=== PATIENT | female | born 1975 | race Hispanic/Latino ===

== ENCOUNTER 2021-03-31 06:41 | Day surgery (SDC) | payer OTHER ==
[2021-03-24 15:48] LABS: Absolute Lymphocytes (CBC) 2.1 K/uL (0.7-4.9); Basophils % 0.9 % (0-1.3); Hematocrit 39.2 % (36.0-45.0); MPV 8.8 fL (7.6-11.3); RBC Red Blood Cell Count 4.32 M/uL (3.86-4.86)
[2021-03-24 15:59] LABS: BUN Blood Urea Nitrogen 8 mg/dL (7-18); Bicarbonate 29 mmol/L (21-32); Glucose Level 94 mg/dL (74-106); Potassium 3.8 mmol/L (3.5-5.1); Sodium Level 140 mmol/L (136-145)
[2021-03-24 16:00] LABS: Protime INR 0.99
[2021-03-24 17:12] LABS: Urine Appearance CLEAR (Clear); Urine Bilirubin NEGATIVE (Negative); Urine Blood NEGATIVE (Negative); Urine Color YELLOW (Yellow); Urine Glucose NEGATIVE (Negative); Urine Protein NEGATIVE (Negative); Urine Urobilinogen 0.2 mg/dL (0.2-1.0); Urine pH 5.5 (5.0-7.0)
[2021-03-24 17:13] LABS: Urine Bacteria 20-50 /HPF (<20); Urine Microscopic Reflex ORDER UMIC; Urine RBC <5 /HPF (NONE SEEN)
[2021-03-31] MEDS ORDERED: NA CHLORIDE 0.9% 1,000 ML ONE ×2 (06:46→07:38)
[2021-03-31] MEDS ORDERED: MIDAZOLAM HCL 2 MG/2 ML INJ ONE (06:58)
[2021-03-31] MEDS ORDERED: LIDOCAINE 2% MPF 5 ML VIAL ONE (06:58)
[2021-03-31] MEDS ORDERED: FENTANYL CITR 250 MCG/5 ML ONE (06:58)
[2021-03-31] MEDS ORDERED: ONDANSETRON 4 MG/2 ML VIAL ONE (06:58)
[2021-03-31] MEDS ORDERED: propofoL 200 MG/20 ML VIAL IV ONE (06:58)
[2021-03-31] MEDS ORDERED: ROCURONIUM 50 MG/5 ML VIAL IV ONE ×2 (06:58→09:30)
[2021-03-31] MEDS ORDERED: dexAMETHasone 10 MG/ML VIAL ONE (06:58)
[2021-03-31 06:59] LABS: Specific Gravity 1.025 (1.005-1.030)
[2021-03-31] MEDS ORDERED: SCOPOLAMINE HYDROBROMIDE PATCH TD ONE (07:01)
[2021-03-31] MEDS ORDERED: Ringers Lactate 1,000 ML IV ONE (07:02)
[2021-03-31] MEDS: BUPIVACAINE 0.25% PF 30 ML VIAL ONE ×2 (07:51→08:25)
[2021-03-31] MEDS: Ringers Lactate 1,000 ML IV ONE ×3 (09:38→10:00)
[2021-03-31] MEDS ORDERED: KETOROLAC 30 MG/ML INJ ONE (09:39)
[2021-03-31] MEDS ORDERED: GLYCOPYRROLATE 0.2 MG/ML SYR ONE (09:47)
[2021-03-31] MEDS ORDERED: NEOSTIGMINE 1 MG/ML -5 ML ONE (09:53)
[2021-03-31] MEDS ORDERED: PROMETHAZINE INJ 25 MG/ML AMP IV PRN (10:22)
[2021-03-31] MEDS ORDERED: HYDROCODONE/APAP 5/325 MG TAB PO PRN (10:22)
[2021-03-31] MEDS ORDERED: IBUPROFEN 200 MG TAB PO PRN (10:22)
[2021-03-31] MEDS ORDERED: MEPERIDINE HCL 25 MG/ML SYR IM PRN (10:22)
--- NOTE | 2021-03-31 10:30 | P.BOP ---
Preoperative diagnosis: pelvic pain, Left ovarian cyst, menorrhagia Postoperative diagnosis: pelvic pain,endometriosis,b/l hydrosalpinges,paratubal cysts,AUB-O Primary procedure: hystsc d/c,lapsc endo rx, BS,MAT sigmoid adhesions Manager Telemarketing: SOPHIE DEGROOT Estimated blood loss: min Specimen: endometriosis left ant lig, left lat and right lat wall,b/l tubes,EMC Findings: endo left ant broad lig prox to ant round lig, R/L lat wall, torsion rt ov/ Anesthesia: General Transferred to: Recovery Room Condition: Good
[2021-03-31 11:13] VITALS: TEMP 97.1; O2SAT 98
[2021-03-31] MEDS ORDERED: HYDROCODONE/APAP 5/325 MG TAB ONE (11:23)
[2021-03-31] MEDS ORDERED: PROMETHAZINE INJ 25 MG/ML AMP ONE (11:41)
[2021-03-31 13:05] VITALS: BP 102/52
--- NOTE | 2021-04-02 14:39 | OP ---
Date of Procedure: 03/31/2021 Surgeon: Yanet Benitez MD Home Health Scheduler: Priscilla Mejia. Preoperative Diagnoses: Pelvic pain, left ovarian cyst, and menorrhagia. Postoperative Diagnoses: Pelvic pain, endometriosis, bilateral hydrosalpinges, and bilateral paratubal cysts with right tubo-ovarian torsion, and menorrhagia. Procedures Performed: 1. Hysteroscopy, D and C. 2. Laparoscopy, extensive endometriosis excision, bilateral salpingectomy, and lysis of sigmoid adhesions. Estimated Blood Loss: Minimal. Specimens: Endometriosis of the left anterior broad ligament close to the proximal to the round ligament laterally and right lateral wall in the periureteric region and lateral to the uterosacral ligament and broad ligament coming over to the posterior broad ligament, then on the left lateral wall posterior broad ligament and lateral wall all the way down to the peritoneum above the ureter. Then, the peritoneum below the ureter between the ureter and sigmoid colon had endometriosis as well and this was removed. All these were excised. Endometriosis of the left anterior broad ligament, left lateral wall, right lateral wall, bilateral tubes, endometrial curettings. Anesthesia: General endotracheal. Home Health Scheduler: Jackie Findings: Endometriosis of the left anterior broad ligament proximal to the anterior round ligament, right lateral wall, left lateral wall going on the broad ligament, then the torsion of the right ovary and tube were seen, which had to be untwisted and then the tubal cyst on the distal tube. It was the reason why there was a torsion, so this was untorsed. The cyst as well as the tube were completely removed on the left side. There was significant hydrosalpinx with fibrosis, so the entire tube was removed. The ovaries were both normal, so they were both preserved. There was very minimal endometriosis to posterior cul-de-sac, which were extremely atypical, so unsure if this is endo, so this was left alone but suspected endometriosis was completely excised on both sides. Indications: The patient is a 46-year-old female with all those complaints, evaluated by ultrasound and found to have a left adnexal mass. Discussed about the possibility of pain due to the possibility of endometriosis and possibility of hydrosalpinges. She had an endometrial evaluation and D and C, so hysteroscopy and D and C were consented and for removal of tubes. The left ovarian cyst was noted to be complex. Pelvic washings, left ovarian cystectomy or left oophorectomy was discussed with the patient as well in case this was a tumor like lesion. Procedure In Detail: After informed consent was verified, she was taken back to OR and placed in supine fashion on the operating table. General anesthesia was given. She was placed in dorsal lithotomy position using Melo stirrups. Arms were tucked by the side. Positioning checked. SCDs started. Time-out was done. Abdomen, vulva, vagina, and perineum were prepped and draped in a sterile fashion. Speculum placed to expose the cervix. Anterior lip grasped with 2 Allis clamps and diagnostic hysteroscopy was performed. A SlimLine hysteroscope, 30-degree lens and no endometrial pathology was noted. Cavity was undistorted. Scope was removed. Curettings were performed and handed off for permanent pathology and uterine manipulator fixed in place and Haley was placed to drain the bladder and attached to a drainage bag and this area was draped. A 1 cm infraumbilical incision made with a scalpel using the open laparoscopy technique. Fascia was incised, tagged with 0 Vicryl sutures. Peritoneum entered sharply and Agllito introduced. After adequate insufflation, site of entry was checked and was unremarkable. Liver and gallbladder and upper peritoneal surfaces including the area of were all unremarkable. The patient was placed in Trendelenburg and the appendix unremarkable. Torsion of the right ovary and tube were seen due to the distal cystic paratubal lesion. There were cystic lesions included in the mesosalpinx on the left side and paratubal cyst as well. These were probably the reason why the left adnexal mass was noted to be complex, but these were definitely not any tumor like tissue. The left ovary was completely unremarkable as well as the right ovary. The uterus appeared to be mostly unremarkable. There was an endometriotic lesion cephalad to the insertion of the uterosacral ligament. This was cauterized. Then, left lateral wall above and lateral and below and medial to the ureteric course. There were multiple endometriotic implants and fibrosis. Distal uterosacral ligament also had some, similar scar tissue on the right side much more dense. The tubal torsion was untwisted after placing a 5 suprapubic in the left lower quadrant ports under direct vision. Once the untwisting was done, the endometriosis was well noted. The ureter was traced and plan was to remove the endo next to the round ligament and went onto the abdominal wall with extension of the mesosalpinx. This was present. Other than this, no endo was seen. The lateral peritoneum was incised with the help of scissors and opened up and scar tissue was dissected excised and this implant was handed off for permanent pathology. Then, the sigmoid adhesions were taken down sharply as well as with bipolar and once this was opened up, the entire left pelvic brim was well visualized. Then, the tube and mesosalpingeal masses were all excised using LigaSure and bipolar. Once all the specimen was retrieved, then attention directed to the opposite side. The ovary was untwisted from its torsion and ovary appeared to be unremarkable. The broad ligament was opened up. The distal tube was taken down with the help of LigaSure all the way and the proximal tube was taken down with the help of LigaSure then the specimen placed in the anterior cul-de-sac. Immediately to the medial to the ovary and onto the right lateral wall, then closing onto the posterior broad ligament were multiple endometriotic implants with scar tissue. The ureter was well visualized. The peritoneum was opened between the ureter and at the lesion just inferior to the pelvic brim and pelvic dissection was performed along the ureter taking the ureter down and it from the underlying endometriosis. Endometrial implants were all and circumscribed with monopolar needle and then removed with bipolar. The ureter and the uterine vessels were all preserved and the entire peritoneum stripped off with the implants. On the left side, similar dissection was performed opening up the lateral wall immediately caudad to the ovary. Then opening the peritoneum off the anteriorly, dissection was carried all the way to the level of the uterine vessels was then taken down along the posterior wall of lateral superior to the ureter. After identifying the internal iliac branches as well as the ureter, dissection was performed to clean this off from the side. Then was left overlying the ureter. Then peritoneum was entered sharply inferior to it because there were several implants between the ureter and the sigmoid colon. These were excised with the help of LigaSure after the ureter and there were other tissues to be damaged. This strip of peritoneum was excised and handed out and was labeled as left lateral . After all the peritoneal implants were removed, thorough irrigation and suction were performed. Tubes were all detached by now was placed and the tubes were placed retrieved. The distal right paratubal cyst was decompressed for the fluid and then all the specimens were pulled out in a specimen bag through the umbilical port. Thorough irrigation and suction were performed. EBL was minimal. All the ports were pulled under direct vision. Instrument, needle, and sponge counts were correct at the end of the case . The fascia of the umbilicus was closed with the help of tagged 0 Vicryl sutures, tied to each other and all skin incisions with 3-0 Vicryl interrupted sutures. Haley was removed. was removed as dictated before. The patient was recovered from anesthesia and taken to the PACU in stable condition. EBL was minimal. She has a 1-week follow up with me. PHYLICIA/RADHA Voice ID: [id number] Report ID: [id number] TOO
== END 2021-03-31 12:55 | disposition home or self-care (01) ==
LOC: OR 06:41
PROVIDERS: ATTEND Obstetrics & Gynecology
PROC: 0UJD8ZZ Inspection of Uterus and Cervix, Via Natural or Artificial Opening Endoscopic (ICD-10-PCS; 2021-03-31)
PROC: 0UT74ZZ Resection of Bilateral Fallopian Tubes, Percutaneous Endoscopic Approach (ICD-10-PCS; 2021-03-31)
PROC: 0UB44ZZ Excision of Uterine Supporting Structure, Percutaneous Endoscopic Approach (ICD-10-PCS; 2021-03-31)
PROC: 0DBW4ZZ Excision of Peritoneum, Percutaneous Endoscopic Approach (ICD-10-PCS; 2021-03-31)
PROC: 0UDB7ZX Extraction of Endometrium, Via Natural or Artificial Opening, Diagnostic (ICD-10-PCS; principal; 2021-03-31 07:30)
DX: R10.2 Pelvic and perineal pain (principal); N92.0 Excessive and frequent menstruation with regular cycle; R19.09 Other intra-abdominal and pelvic swelling, mass and lump; N39.3 Stress incontinence (female) (male); R39.14 Feeling of incomplete bladder emptying; N39.0 Urinary tract infection, site not specified; Z20.822 Contact with and (suspected) exposure to COVID-19
CPT/HCPCS: 85025; 80048; 36415; 86900; 86850; 81025; 85610; 86901; 88302; 88305; 85730; 58558; 58661; 58662; U0003; J2704; J2550; J2250; J3010; J1100; J2710; J7120 ×2; J7030 ×2; J2405; 81003; 81015

== ENCOUNTER 2024-08-01 07:30 | Day surgery (SDC) | payer OTHER ==
[2024-07-30 09:52] LABS: Absolute Eosinophils 0.1 K/uL (0-0.5); Absolute Lymphocytes (CBC) 2.3 K/uL (0.7-4.9); Absolute Monocytes 0.4 K/uL (0.1-1.3); Absolute Neutrophil 2.6 K/uL (1.8-8.0); Basophils % 0.8 % (0-1.3); Eosinophils % 1.5 % (0-4.4); Hematocrit 38.9 % (36.0-45.0); Hemoglobin 13.1 g/dL (12.0-15.0); Lymphocytes % 42.7 % (15.3-44.8); MCH 30.4 pg (27.0-35.0); MCHC 33.7 g/dL (32.0-36.0); MCV 90.3 fL (80-100); MPV 8.6 fL (7.6-11.3); Monocytes % 7.2 % (3.3-12.3); Neutrophils % 47.8 % (41.7-73.7); Nucleated Red Blood Cells % 0.2 % (0-0); Platelets 241 thou/uL (152-406); Red Cell Distribution Width 14.3 % (12.1-15.2)
[2024-07-30 10:13] LABS: ALT/SGPT 19 U/L (13-56); Albumin 3.6 g/dL (3.4-5.0); Albumin/Globulin Ratio 0.9 (1.1-1.8); Alkaline Phosphatase 46 U/L (45-117); Anion Gap 7.1 mEq/L (5.0-15.0); BUN Blood Urea Nitrogen 10 mg/dL (7-18); Bicarbonate 27 mEq/L (21-32); Bilirubin Total 0.5 mg/dL (0.2-1.0); Globulin 3.9 g/dL (2.3-3.5); Glomerular Filtration Rate 112 ml/min (=/>90); Glucose Level 92 mg/dL (74-106); Lipase 26 U/L (13-75); Potassium 4.1 mEq/L (3.5-5.1); Protein, Total 7.5 g/dL (6.4-8.2); Sodium Level 138 mEq/L (136-145)
[2024-07-30 10:16] LABS: AST/SGOT < 10 U/L (15-37); Bilirubin Direct < 0.2 mg/dL (0-0.2); Bilirubin Indirect, Calculated 0.3 mg/dL (0.2-0.8)
--- NOTE | 2024-07-30 10:47 | RAD REPORT ---
Procedure: Chest Pa And Lat (2 Views) HISTORY: Preop for same-day surgery COMPARISON: none FINDINGS: The lungs appear clear of acute infiltrate. No significant pleural effusion noted. The heart is normal size. IMPRESSION: No acute abnormality is displayed.
--- NOTE | 2024-07-30 11:16 | EKG ---
Test Date: 2024-07-30 Test Time: 09:41:37 [place] Machine Operator: REHANA MEASUREMENT RESULTS: Intervals: Rate: 60 CO: 158 QRSD: 80 QT: 384 QTc: 384 [place]: P: 70 CO: 158 QRS: 58 T: 47 INTERPRETIVE STATEMENTS: Normal sinus rhythm Normal ECG No previous ECG available for comparison Electronically Signed On 07-30-24 11:15:56 CDT by Jaden Rivera
[2024-08-01] MEDS: Ringers Lactate 1,000 ML IV ONE (08:00)
[2024-08-01] MEDS: CEFOXITIN SODIUM 1 GM/VIAL ONE (08:14)
[2024-08-01] MEDS ORDERED: ONDANSETRON 4 MG/2 ML VIAL ONE (08:18)
[2024-08-01] MEDS ORDERED: MIDAZOLAM HCL 2 MG/2 ML INJ ONE (08:18)
[2024-08-01] MEDS ORDERED: propofoL 200 MG/20 ML VIAL IV ONE (08:18)
[2024-08-01] MEDS ORDERED: LIDOCAINE 2% MPF 5 ML VIAL ONE (08:18)
[2024-08-01] MEDS ORDERED: ROCURONIUM 50 MG/5 ML VIAL IV ONE (08:18)
[2024-08-01] MEDS ORDERED: FENTANYL CITR 100 MCG/2 ML ONE (08:18)
[2024-08-01] MEDS ORDERED: KETOROLAC 30 MG/ML INJ ONE (08:18)
[2024-08-01] MEDS ORDERED: dexAMETHasone 10 MG/ML VIAL ONE (08:18)
[2024-08-01 08:20] VITALS: O2SAT 100
[2024-08-01] MEDS ORDERED: Mastisol Adhesive Liq ONE (09:53)
[2024-08-01] MEDS ORDERED: NEOSTIGMINE 1 MG/ML -10 ML VIAL ONE (09:56)
[2024-08-01] MEDS ORDERED: GLYCOPYRROLATE 0.2 MG/ML SYR ONE (09:56)
--- NOTE | 2024-08-01 11:10 | P.BOP ---
Preoperative diagnosis: symptomatic cholelithiasis, biliary dyskinesia, acute cholecystitis Postoperative diagnosis: same Primary procedure: Laparoscopic cholecystectomy Estimated blood loss: <10cc Specimen: gb Findings: as above Anesthesia: General Complications: None Transferred to: Recovery Room Condition: Good
[2024-08-01] MEDS ORDERED: TRAMADOL HCL 50 MG TAB ONE (11:12)
[2024-08-01] MEDS: TRAMADOL 37.5mg/APAP 325mg PER TAB ONE (11:19)
[2024-08-01 13:11] VITALS: BP 108/58; TEMP 97.7
== END 2024-08-01 11:39 | disposition home or self-care (01) ==
LOC: OR 07:30
PROVIDERS: ATTEND Surgery
PROC: 0FT44ZZ Resection of Gallbladder, Percutaneous Endoscopic Approach (ICD-10-PCS; principal; 2024-08-01 09:00)
DX: K80.00 Calculus of gallbladder with acute cholecystitis without obstruction (principal); K82.8 Other specified diseases of gallbladder
CPT/HCPCS: 93005; 85025; 80048; 36415; 80076; 88304; 83690; 71046; 47562; J2704; J2710; J2003; J2250; J3010; J1100; J0694; J2405; J7120